=== PATIENT | female | born 1985 | race Caucasian/White ===

== ENCOUNTER 2022-10-04 06:46 | Emergency (ER) | payer SELFPAY ==
[~2022-10-04] VITALS: Ht 162.6 cm; Wt 68.0 kg
[2022-10-04 07:20] VITALS: BP 131/89
[2022-10-04] MEDS ORDERED: ONDANSETRON HCL 4MG/2ML INJ IV STA (08:29)
[2022-10-04] MEDS ORDERED: MORPHINE SULFATE 4 MG/ML CPJ (NOT FOR IM USE) IV STA (08:29)
[2022-10-04] MEDS ORDERED: SODIUM CHLORIDE 0.9% 1,000 ML IV ONE (08:30)
[2022-10-04] MEDS ORDERED: LEVETIRACETAM 500MG PREMIX 100 ML IV ONE (09:00)
== END 2022-10-04 09:00 | disposition left against medical advice (07) ==
LOC: ER 07:16
DX: R10.9 Unspecified abdominal pain (principal); R56.9 Unspecified convulsions
CPT/HCPCS: 99281; J7030